=== PATIENT | female | born 1970 | race Caucasian/White ===

== ENCOUNTER 2018-02-07 20:32 | Inpatient (IN) ==
[~2018-02-07 20:32] MED LIST: *HR* EPINEPHrine 30 MG/30 ML MDV IM ONE
[2018-02-07 22:35] LABS: Basophils % 0.5 %; Monocytes % 6.2 %
[2018-02-07 22:36] LABS: ABG Base Excess < -30 mEq/L (-2 to 3); ABG Chloride 108 mEq/L (98-107); ABG Glucose 214 mg/dL (60-95); ABG HCO3 5 mEq/L (21-27); ABG Ionized Calcium 0.96 mmol/L (1.15-1.35); ABG Oxygen Saturation 79 % (95-98); ABG PCO2 43 mmHg (35-45); ABG PH 6.71 pH Units (7.32-7.45); ABG PO2 89 mmHg (85-104); ABG TCO2 7 mEq/L (20-26); Blood Gas Modality ASSIST CONTROL; Blood Gas PEEP 5 cm H2O; Blood Gas Respiration Rate 14; Blood Gas VT 500 cc
[2018-02-07 22:37] LABS: Basophils # 0.1 K/mcL (0.0-0.2); Eosinophils # 0.1 K/mcL (0.0-0.6); Eosinophils % 0.5 %; Hematocrit 35.6 % (35.3-44.9); Immature Granulocytes % 4.9 % (0-4); Immature Platelets 5.7 % (1.1-6.1); Lymphocytes # 2.1 K/mcL (0.6-4.6); Lymphocytes % 11.1 %; Mean Corpuscular HGB Conc 28.1 g/dL (31.6-35.5); Mean Corpuscular Hemoglobin 28.6 pg (28.0-33.3); Mean Corpuscular Volume 101.7 fL (83.0-100.0); Mean Platelet Volume 10.4 fL (9.4-12.4); Monocytes # 1.2 K/mcL (0.0-1.3); Neutrophils # 14.5 K/mcL (1.6-8.9); Platelet Count 361 K/mcL (140-400); Red Cell Distribution Width 13.8 % (11.5-14.5); Segmented Neutrophils % 76.8 %
[2018-02-07 22:38] LABS: VBG Ionized Calcium 0.89 mmol/L (1.15-1.35)
[2018-02-07 22:46] LABS: INR 1.6; Prothrombin Time 17.1 Seconds (9.4-12.1)
[2018-02-07] MEDS ORDERED: Amiodarone Premix 150 MG/100 ML BAG IVPB ONE (22:50)
[2018-02-07] MEDS ORDERED: Sod Bicarb 150mEq/D5W 150 MEQ/1,000 ML IV.SOLN IVC SCH (23:00)
[2018-02-07] MEDS ORDERED: Amiodarone Premix 360 MG/200 ML BAG IVC ONE (23:00)
[2018-02-07 23:11] LABS: Hypochromasia Present (Not Present); Platelet Estimate Normal (Normal)
[2018-02-07 23:12] LABS: ABG Base Excess -28 mEq/L (-2 to 3); ABG HCO3 6 mEq/L (21-27); ABG Oxygen Saturation 86 % (95-98); ABG PCO2 44 mmHg (35-45); ABG PH 6.76 pH Units (7.32-7.45); ABG PO2 100 mmHg (85-104); ABG TCO2 8 mEq/L (20-26); Blood Gas PEEP 10 cm H2O
[2018-02-07] MEDS ORDERED: Phenylephrine 20 MG in D5% in Water 250 ML IVC SCH (23:15)
[2018-02-07 23:18] LABS: Calcium 7.1 mg/dL (8.6-10.3); Magnesium 1.9 mg/dL (1.6-2.6); Phosphorous 15.4 mg/dL (2.7-4.5); Potassium 6.7 mEq/L (3.5-5.1)
[2018-02-07] MEDS ORDERED: Naloxone 0.4 MG/ML INJ IVP PRN (23:27)
[2018-02-07] MEDS: Sodium Bicarbonate 150 MEQ in D5% in Water 1,000 ML IVC SCH (23:28)
[2018-02-07] MEDS: Ipratropium/Albuterol Neb 3 ML IH SCH (23:29)
[2018-02-07 23:34] LABS: Bilirubin,Urine Small (Negative); Blood,Urine Large (Negative); Clarity,Urine Turbid (Clear); Color,Urine Dark Yellow (Yellow); Glucose,Urine (UA) 100 mg/dL (Normal); Ketones,Urine Trace mg/dL (Negative); Leukocyte Esterase,Urine Small (Negative); Nitrite,Urine Negative (Negative); PH,Urine 5.5 pH Units (5.0-8.0); Protein,Urine >=300 mg/dL (Neg-Trace); Specific Gravity,Urine > 1.030 (1.010-1.025); Urobilinogen,Urine Normal (Normal)
[2018-02-07] MEDS ORDERED: Dextrose Gel 15 GM/37.5 ML TUBE PO PRN ×2 (23:35)
[2018-02-07] MEDS ORDERED: *HR* Dextrose 50 % in Water (Syg) 50 ML SYRINGE IVP PRN (23:35)
[2018-02-07] MEDS ORDERED: D5% in Water 1,000 ML IVC PRN (23:35)
[2018-02-07 23:37] LABS: Squamous Epithelial Cell,Urine Many per lpf (None-Few); WBC,Urine 15-30 per hpf (0-3)
[2018-02-07 23:45] LABS: Hyaline Casts,Urine Few per lpf (None-Few); Mucus,Urine Many (Few)
[2018-02-07] MEDS ORDERED: Vasopressin 40 UNIT in D5% in Water 100 ML IV SCH (23:45)
[2018-02-07 23:46] LABS: Bacteria,Urine Many per hpf (None-Few); Yeast,Urine Moderate per hpf (None Seen)
[2018-02-07] MEDS: Norepinephrine 8 MG in D5% in Water 250 ML IVC SCH (23:53)
--- NOTE | 2018-02-08 00:08 | Internal Med History&Physical ---
Date of Encounter: 02/07/18 Time of Encounter: 22:00 Assessment and Plan (1) Septic shock Current visit: Yes Status: Acute Pt has sepsis with low BP need 3 pressors now. Consider septic shock. - Cont abx to treat infection. - Cont iv pressors to maintain BP (2) Multi-organ system dysfunction Current visit: Yes Status: Acute Pt has respiratory and renal failure and septic shock, consider MOSD. Cause of MOSD is severe sepsis. Cont supportive treatment with pressors, mechanical ventilation, and urgent HD. (3) DVT prophylaxis Current visit: Yes Status: Acute EPCDs. (4) Acute renal failure Current visit: No Status: Acute Nephrology consult was called. Plan for urgent HD. Pt has poor urine output. Qualifiers: Acute renal failure type: unspecified Qualified Code(s): N17.9 - Acute kidney failure, unspecified (5) Acute respiratory failure Current visit: No Status: Acute Cont ventilation with PEEP. Pt meets ARDS criteria. Qualifiers: Respiratory failure complication: hypoxia Qualified Code(s): J96.01 - Acute respiratory failure with hypoxia (6) Pneumonia Current visit: No Status: Acute CTA has done in ER, shows pneumonia but no PE. Cover pt with vanco and zosyn now. Cont supportive treatment. Qualifiers: Pneumonia type: due to unspecified organism Laterality: bilateral Lung location: lower lobe of lung Qualified Code(s): J18.1 - Lobar pneumonia, unspecified organism (7) Sepsis Current visit: No Status: Acute Pt meets sepsis criteria with tachycardia, leukocytosis, and tachypnea, infection source is considered pneumonia. But other source of infection is not ruled out, however pt is too sick to have further imaging test at this point. - Blood culture obtained in [facility], prior to start zosyn. Follow up result. - Cover pt with broad-spectrum abx vanco and zosyn. - IVF rescusitation per protocol, lactate is high to > 10, follow up lactate. Qualifiers: Sepsis type: sepsis due to unspecified organism Qualified Code(s): A41.9 - Sepsis, unspecified organism (8) Diabetes mellitus Current visit: Yes Status: Acute Place pt on SSI at this point. Qualifiers: Diabetes mellitus type: type 2 Diabetes mellitus buttermaker continuous churn insulin use: with buttermaker continuous churn use Diabetes mellitus complication status: with unspecified complications Qualified Code(s): E11.8 - Type 2 diabetes mellitus with unspecified complications; Z79.4 - nursing home (current) use of insulin; Z79.4 - intermission coordinator (current) use of insulin; Z79.4 - nursing home (current) use of insulin; Z79.4 - intermission coordinator (current) use of insulin (9) Metabolic acidosis Current visit: Yes Status: Acute Most likely due to severe sepsis. Pt was given Bicarbonatr IVP, followed by bicarbonate drip. Plan for urgent HD, closely monitor pt. (10) Hyperkalemia Current visit: No Status: Acute Due to ARF. Potassium slightly get down after treatment. Plan for urgent HD. Internal Medicine - H&P: HPI Chief complaint: SOB Admitted From: Home Plans for Post Hospital Care: Home History of present illness: Ms. Julien is a 47 year old female with history of diabetes, chronic hip pain, COPD, depression, recent history of spinal infection (possibly osteomyelitis per CAT scan and MRI in chart) presented to [facility] for acute onset of shortness of breath. Patient was intubated in [facility]. History was obtained from patient's . Per patient's , patient is sleepy for several days recently. Today, she has increased shortness of breath and confusion. Patient can only 4 limbs and walks with assistance per patient's , prior to go to ER. Per , pt has no fever, no cough. Has nausea but no vomiting. In ER, pt was found in acute respiratory distress with RR at 30 -40. Pt was intubated immediately. CTA shows no PE but having pneumonia. Pt was found hypotension and central line was placed by ER physician and levophed started. Pt has hyperkalemia with potassium 7.5 and metabolic acidisos with bicarbonate 8. Pt has acute renal failure with Cr 8.81. Pt was given IVF for 3L , one dose of zosyn. Pt was given bicarbonate 50 mEq and insulin 10 units, keyaxalate 30 g through NG tube. Pt was transferred to our ICU. Upon arrival, pt's BP 78/34, pulse 107. Repeat ABG PH 6.71, Bicarbonate 5, potassim 6.4. Pt has no urine. Phenalephrine and later vesopressin drip started to maintain BP. Pt was give sodium bicarbonate 50 mEq ivp x 4 and followed by bicarbonate drip. Pt has developped wide QRS tachycardia which convert to sinus with Calcium 1 g iv plus amiodarone iv followed by amiodarone drip. Stat nephrology and IR consult was informed to have new HD line and start urgent HD. After above treatment, Pt's BP get up to 90s and HR at around 100 at SR. I have discussed with pt's and he understand that pt is on critical condition and prognosis is most likely poor. He shows understand and state keep pt at FULL CODE. Past Med Surg Social Fam HX - Past Medical History Medical history: diabetes, hyperlipidemia, hypertension Psychiatric history: anxiety, depression, panic disorder - Past Surgical History Surgical History: hip replacement, hysterectomy, orthopedic, other - Social History Smoking Status: Former smoker Smokeless Tobacco Status: No Alcohol use: occasionally Drug use: none - Family History Mother History Unknown: Yes Internal Medicine - H&P: Meds Carisoprodol [Soma] 350 mg PO TID 08/13/15 [History] Duloxetine [Cymbalta] 120 mg PO DAILY 08/13/15 [History] Furosemide [Lasix] 40 mg PO Q4D 08/13/15 [History] Insulin ASPART [NovoLOG] 4 - 30 unit SQ TIDWM 08/13/15 [History] Insulin Glargine,Hum.rec.anlog [Lantus Solostar] 90 unit SQ HS 08/13/15 [History ] Methocarbamol [Robaxin] 750 mg PO Q8HR 08/13/15 [History] Albuterol Sulfate [Ventolin Hfa] 2 puff IH Q4H PRN 05/08/16 [History] Beclomethasone Diprop 80mcg [Qvar 80 mcg] 1 puff IH BID 05/08/16 [History] BuPROPion XL (24 HR) [Wellbutrin XL] 300 mg PO DAILY 05/08/16 [History] Diclofenac Sodium [Voltaren] 75 mg PO BID 05/08/16 [History] EPINEPHrine [Adrenalin] 1 mg IJ ONCE PRN 05/08/16 [History] Ergocalciferol (VITAMIN D2) [Vitamin D2 (50,000 UNIT)] 50,000 unit PO HOWELL [History] Ferrous Sulfate 325 mg PO HS 05/08/16 [History] Furosemide [Lasix] 20 mg PO HS 05/08/16 [History] Gabapentin [Neurontin] 800 mg PO TID 05/08/16 [History] GlipiZIDE XL (24 HR) [Glucotrol XL] 10 mg PO BID 05/08/16 [History] Ibuprofen [Motrin] 800 mg PO Q8HR 05/08/16 [History] Levothyroxine [Synthroid] 100 mcg PO 0630 05/08/16 [History] Lisinopril [Zestril] 10 mg PO DAILY 05/08/16 [History] Metformin HCl [Glucophage] 1,000 mg PO BID 05/08/16 [History] Mirtazapine [Remeron] 15 mg PO HS 05/08/16 [History] Montelukast [Singulair] 10 mg PO HS 05/08/16 [History] Pantoprazole Sodium [Protonix] 40 mg PO HS 05/08/16 [History] Ranitidine HCl [Zantac] 150 mg PO BID 05/08/16 [History] Sucralfate [Carafate] 1 gm PO TID 05/08/16 [History] Tiotropium [Spiriva] 18 mcg IH HS 05/08/16 [History] clonazePAM [Klonopin] 0.5 mg PO BID 05/08/16 [History] Ondansetron HCl [Zofran] 4 mg PO Q6H PRN #10 tablet 07/31/17 [Rx] Potassium Chloride [K-Tab ER] 10 meq PO BID #10 tablet.er 07/31/17 [Rx] 3 Allergy/AdvReac Type Severity Reaction Status Date / Time aspirin Allergy Difficulty Verified 08/01/17 02:35 Breathing methotrexate Allergy Hives Verified 08/01/17 02:35 venom-honey bee Allergy Swelling Verified 08/01/17 02:35 [bee venom (honey bee)] of Lip/Tongue/Throat adhesive AdvReac Rash Verified 08/01/17 02:35 ROS unobtainable: due to endotracheal tube All Systems PM: A 10-system review of systems was performed and is negative for pertinent findings except as documented above in the HPI. - Constitutional Vitals: Temp Pulse Resp BP Pulse Ox 96 F L 121 24 89/55 88 02/07/18 22:36 02/07/18 22:36 02/07/18 23:24 02/07/18 22:36 02/07/18 23:24 General appearance: Present: obese Exam: Pt is intubated and on ventilation. - Head Head exam: Present: atraumatic, normocephalic - Eye Eye exam: Present: PERRL, conjuntiva pink, sclera anicteric Pupils: Present: PERRL - Neck Neck exam general surgery: Present: supple, trachea midline. Absent: lymphadenopathy - Respiratory Respiratory exam: Present: CTAB. Absent: accessory muscle use, rales, rhonchi, wheezes - Cardiovascular Cardiovascular exam: Present: RRR, +S1, +S2, tachycardia. Absent: diastolic murmur, gallop, rubs, systolic murmur - GI/Abdominal GI/Abdominal exam: Present: normal bowel sounds, soft, no peritoneal signs. Absent: distended, tenderness - Extremities Exam Extremities exam: Present: warm, radial pulses palpable and symmetrical. Absent : calf tenderness, cyanotic, pedal edema - Neurological Exam Neurological exam: Present: CN II-XII intact, no focal deficits (Limited examination due to intubation, no focal deficit identified so far.). Absent: facial droop - Skin Skin exam: Present: dry, intact Internal Med - H&P Results - Labs CBC & Chem 7: 02/07/18 22:15 02/07/18 22:15 Labs: Short CBC 02/07/18 Range/Units 22:15 WBC 18.9 H (4.3-11.1) K/mcL Hgb 10.0 L (11.5-15.4) g/dL Hct 35.6 (35.3-44.9) % Plt Count 361 (140-400) K/mcL Neutrophils # 14.5 H (1.6-8.9) K/mcL BMP 02/07/18 22:15 Sodium 134 L Potassium 6.7 H* Chloride 97 L Carbon Dioxide 5 L* BUN 53 H Creatinine 8.00 H Glucose 205 H Calcium 7.1 L Urine 02/07/18 Range/Units 23:25 Urine Color Dark Yellow (Yellow) Urine Clarity Turbid A (Clear) Urine pH 5.5 (5.0-8.0) pH Units Ur Specific [place] > 1.030 H (1.010-1.025) Urine Protein >=300 H (Neg-Trace) mg/dL Urine Glucose (UA) 100 H (Normal) mg/dL - ABG Interpretation ABG results: 02/07/18 02/07/18 22:17 23:08 ABG pH 6.71 L* 6.76 L* ABG pCO2 43 44 ABG pO2 89 100 ABG HCO3 5 L 6 L ABG Total CO2 7 L 8 L ABG O2 Saturation 79 L 86 L ABG Base Excess < -30 L -28 L - Impressions ITS Impressions Chest X-Ray 02/07/18 22:41 IMPRESSION: 1. Cardiomegaly. 2. Calcific atherosclerosis aorta. 3. Life support appliances appear appropriately positioned. 4. Unchanged bilateral parahilar medial upper lung atelectasis or infiltrate. D/ / Jeromy Leal / Jeromy Leal Interpreting Provider: Jeromy Leal
[2018-02-08] MEDS: Pantoprazole 40 MG VIAL IVP SCH ×2 (00:17→05:23)
[2018-02-08] MEDS: Insulin LISPRO 300 UNITS/3 ML VIAL SQ SCH ×2 (00:17→05:14)
[2018-02-08] MEDS ORDERED: *HR* Heparin 5,000 UNIT/ML VIAL ONE (00:25)
--- NOTE | 2018-02-08 00:32 | IR Procedure Note ---
Date of procedure: 02/08/18 Consent Obtained: Verbal consent Timeout: Correct patient and procedure verified, Correct site verified, Time out performed, Skin prep completed Local anesthetic: Lidocaine 1% Indications: ARF Procedure Performed: Temp dialysis catheter placement Was there an assistant federal public defender present: No Results/Findings: RIJ 15.5 F 20 cm temp dialysis catheter placement Estimated blood loss (cc): 0 Complications: None; Tolerated procedure well (Monitor on floor) Specimen: None
[2018-02-08 00:34] LABS: VBG Ionized Calcium 0.94 mmol/L (1.15-1.35); VBG PH 6.82 pH Units (7.32-7.42)
[2018-02-08 00:43] LABS: Calcium 7.6 mg/dL (8.6-10.3); Magnesium 1.7 mg/dL (1.6-2.6); Potassium 6.6 mEq/L (3.5-5.1)
[2018-02-08] MEDS ORDERED: 0.9 % Sodium Chloride 250 ML IVC PRN (00:59)
[2018-02-08] MEDS ORDERED: 0.9 % Sodium Chloride 1,000 ML PRIME SCH (01:00)
[2018-02-08] MEDS ORDERED: 0.9 % Sodium Chloride 1,000 ML ONE (01:08)
[2018-02-08] MEDS: WATER IVC SCH ×3 (01:13→08:18)
[2018-02-08] MEDS: D5 IVC SCH ×3 (01:13→08:18)
[2018-02-08] MEDS: PHENYLEPHRINE IVC SCH ×3 (01:13→08:18)
[2018-02-08] MEDS ORDERED: Albumin 25% 25gram/100mL 25 GM/100 ML IV.SOLN IVPB ONE (01:19)
[2018-02-08] MEDS: EPINEPHrine 1 MG in D5% in Water 250 ML IVC SCH ×3 (01:30→04:28)
[2018-02-08 02:05] LABS: VBG Ionized Calcium 0.88 mmol/L (1.15-1.35)
[2018-02-08 02:33] LABS: Calcium 7.1 mg/dL (8.6-10.3); Magnesium 1.6 mg/dL (1.6-2.6); Potassium 6.6 mEq/L (3.5-5.1)
[2018-02-08 03:00] LABS: ABG Base Excess -28 mEq/L (-2 to 3); ABG HCO3 6 mEq/L (21-27); ABG Oxygen Saturation 76 % (95-98); ABG PCO2 44 mmHg (35-45); ABG PH 6.76 pH Units (7.32-7.45); ABG PO2 78 mmHg (85-104); ABG TCO2 8 mEq/L (20-26); Blood Gas Modality ASSIST CONTROL; Blood Gas PEEP 10 cm H2O; Blood Gas Respiration Rate 16; Blood Gas VT 500 cc
[2018-02-08] MEDS ORDERED: *HR* Alteplase (Cathflo) 2 MG VIAL IVP PRN (03:08)
[2018-02-08] MEDS ORDERED: *HR* Heparin 5,000 UNIT/ML VIAL IV PRN (03:08)
[2018-02-08] MEDS ORDERED: PrismaSATE BGK 2/0 5,000 ML CRRT SCH (03:15)
[2018-02-08] MEDS: Ipratropium/Albuterol Neb 3 ML IH SCH ×8 (03:16→15:20)
[2018-02-08] MEDS: Norepinephrine 8 MG in D5% in Water 250 ML IVC SCH ×3 (03:19→10:33)
[2018-02-08] MEDS: PrismaSATE BGK 2/0 5,000 ML CRRT SCH ×4 (03:43→14:17)
[2018-02-08] MEDS: 0.9 % Sodium Chloride 1,000 ML PRIME SCH ×3 (03:46→05:01)
[2018-02-08 04:31] LABS: ABG Base Excess -26 mEq/L (-2 to 3); ABG HCO3 7 mEq/L (21-27); ABG Oxygen Saturation 79 % (95-98); ABG PCO2 42 mmHg (35-45); ABG PH 6.84 pH Units (7.32-7.45); ABG PO2 76 mmHg (85-104); ABG TCO2 9 mEq/L (20-26); Blood Gas Modality ASSIST CONTROL; Blood Gas PEEP 10 cm H2O; Blood Gas Respiration Rate 16; Blood Gas VT 500 cc
[2018-02-08 04:48] LABS: VBG Ionized Calcium 0.85 mmol/L (1.15-1.35)
--- NOTE | 2018-02-08 04:55 | Event Note ---
Date of Encounter: 02/08/18 Time of Encounter: 04:30 Pt's condition is gradually getting worse. Pt's BP get down to 70s although pt is already on levophed, phenolaphrine and vasopressin, all have been increased to maximum dose. I called intensivisit consult Dr Burns and discussed with him regarding pt's condition. Pt has severe acidosis and not improve even we give repeatedly sodium bicarbonate IVP. The persist acidosis is the reason to cause pt not respond to pressors. We have added epinephrine drip and ordered another 100 mEq sodium bicarbonate and cont bicarbonate drip. Pt's SBP remains at 60-70s on totally 4 pressor and PH remains low at 6.8 after sodium bicarbonate ivp and drip. Nephrology plan to start bedside ultrafilter. Pt's present at bedside at around 4am. I have explained to him pt's condition and the poor prognosis although we have given the maximum support to pt. All question from pt's have been answered. Pt's understand the chance of saving pt's life is very slim. He said if pt's heart stop beating , just let her go. We will cont current supportive and abx treatment. Will change CODE STATUS to DNRCCA per pt's wishes. In charge nurse Alayna Farias also joined the conversation during I talked to pt's .
[2018-02-08] MEDS ORDERED: Amiodarone Premix 360 MG/200 ML BAG IVC SCH (05:00)
[2018-02-08] MEDS ORDERED: 0.9 % Sodium Chloride 1,000 ML PRIME PRN (05:01)
[2018-02-08 05:04] LABS: Red Blood Count 3.41 M/mcL (3.82-4.97); Red Cell Distribution Width 13.7 % (11.5-14.5); Segmented Neutrophils % 80.5 %
[2018-02-08 05:06] LABS: Basophils # 0.1 K/mcL (0.0-0.2); Basophils % 0.5 %; Hematocrit 33.9 % (35.3-44.9); Hemoglobin 9.6 g/dL (11.5-15.4); Immature Granulocytes % 3.9 % (0-4); Lymphocytes # 1.6 K/mcL (0.6-4.6); Lymphocytes % 7.5 %; Mean Corpuscular HGB Conc 28.3 g/dL (31.6-35.5); Mean Corpuscular Hemoglobin 28.2 pg (28.0-33.3); Mean Corpuscular Volume 99.4 fL (83.0-100.0); Mean Platelet Volume 11.2 fL (9.4-12.4); Monocytes # 1.6 K/mcL (0.0-1.3); Monocytes % 7.6 %; Nucleated Red Blood Cells 0.4 /100 WBC (0); Platelet Count 348 K/mcL (140-400)
[2018-02-08 05:11] LABS: Albumin 2.8 g/dL (3.5-5.7); Albumin/Globulin Ratio 1.3 (1.1-2.2); Bilirubin,Direct 0.3 mg/dL (0.0-0.2); Bilirubin,Indirect 0.3 mg/dL (0.0-1.2); Bilirubin,Total 0.6 mg/dL (0.3-1.0); Globulin 2.1 g/dL (2.4-3.5); Total Protein 4.9 g/dL (6.4-8.9)
[2018-02-08 05:13] LABS: Neutrophils # 16.6 K/mcL (1.6-8.9)
[2018-02-08 05:18] LABS: Albumin 2.9 g/dL (3.5-5.7); Calcium 6.9 mg/dL (8.6-10.3); Magnesium 2.1 mg/dL (1.6-2.6); Phosphorous 14.1 mg/dL (2.7-4.5); Potassium 6.5 mEq/L (3.5-5.1)
[2018-02-08 05:18] LABS: Prothrombin Time 79.2 Seconds (9.4-12.1)
[2018-02-08 05:19] LABS: INR 7.1
[2018-02-08 05:23] LABS: Hepatitis B Surface Antibody 0.37 mIU/mL; Hepatitis B Surface Antigen Nonreactive (Nonreactive)
[2018-02-08] MEDS: EPINEPHrine 5 MG in D5% in Water 250 ML IVC SCH ×2 (05:45→13:10)
[2018-02-08 06:00] LABS: Acanthocytes 1+ (Not Present); Hypochromasia Present (Not Present); Macrocytosis Present (Not Present); Platelet Estimate Normal (Normal); Polychromasia 1+ (Not Present)
[2018-02-08] MEDS ORDERED: Piperacillin/Tazobactam 3.375 GM in 0.9 % Sodium Chloride Mini Bag 100 ML IVPB SCH ×2 (06:00→14:00)
[2018-02-08 06:01] LABS: Large Platelets Present (Not Present)
[2018-02-08 06:03] LABS: Activated Partial Thrombo Time > 360.0 Seconds (26.0-36.0)
[2018-02-08 06:10] LABS: Heparin anti-factor XA UFH 2.07 IU/mL (0.30-0.70)
[2018-02-08] MEDS ORDERED: Hydrocortisone Sodium Succ 100 MG/2 ML VIAL IVP ONE (07:27)
[2018-02-08] MEDS ORDERED: FentaNYL (PF) 1,000 MCG in 0.9 % Sodium Chloride 80 ML IVC SCH (07:30)
[2018-02-08] MEDS ORDERED: Albuterol Neb 1.25 MG/3 ML VIAL IH ONE (08:06)
[2018-02-08] MEDS: Sodium Bicarbonate 150 MEQ in D5% in Water 1,000 ML IVC SCH ×2 (08:10→14:15)
--- NOTE | 2018-02-08 08:35 | Event Note ---
Date of Encounter: 02/08/18 Time of Encounter: 08:32 This note is entered as a point of clarification. In reviewing the medical documentation over the last 24 hours on this patient's chart I noticed that the emergency room physician at [facility] documented that he spoke to the window caser environmental officer at [facility] regarding this case. I was the window caser at [place] on-call during this time and I did not speak nor accept transfer of this patient in any way with the emergency room physician or team at [facility]. I was called in the early hours of 02/08/18 by the covering hospitalist Dr Carlisle to comment on the addition of a fourth vasopressor in the context of profound metabolic acidemia as outlined in his medical documentation.
[2018-02-08 08:39] LABS: ABG Base Excess -25 mEq/L (-2 to 3); ABG HCO3 8 mEq/L (21-27); ABG Oxygen Saturation 77 % (95-98); ABG PCO2 45 mmHg (35-45); ABG PH 6.87 pH Units (7.32-7.45); ABG PO2 71 mmHg (85-104); ABG TCO2 10 mEq/L (20-26); Blood Gas Modality ASSIST CONTROL; Blood Gas PEEP 10 cm H2O; Blood Gas Respiration Rate 16; Blood Gas VT 500 cc
[2018-02-08 08:47] LABS: VBG Ionized Calcium 0.72 mmol/L (1.15-1.35)
--- NOTE | 2018-02-08 09:01 | Pulmonology Progress Note ---
Date of Encounter: 02/08/18 Time of Encounter: 07:00 Assessment and Plan (1) Multi-organ system dysfunction Current Visit: Yes Status: Acute Encephalopathic, hypotensive, severe DAKOTA, coagulopathic. -- Multifactorial: suspect secondary to acute renal injury contributing to a pharmacologic (suspect Metformin) metabolic acidosis -- Severely hypotensive despite fluid and pressor support -- Prognosis is poor -- Continuing current supportive measures for the time being including fluids, pressors, and comfort measures -- Nephrology is onboard and patient is receiving bedside hemodialysis -- Family present is understanding of severity of patient's status (2) Septic shock Current Visit: Yes Status: Suspected Suspected provoking factor to overall clinical picture as stated above -- supportive measures in place -- Lactate has been above 10 (3) Pneumonia Current Visit: Yes Status: Suspected On Abx and Duonebs q2Hr Qualifiers: Pneumonia type: due to unspecified organism Laterality: bilateral Lung location: lower lobe of lung Qualified Code(s): J18.1 - Lobar pneumonia, unspecified organism (4) Acute respiratory failure Current Visit: Yes Status: Acute Qualifiers: Respiratory failure complication: hypoxia Qualified Code(s): J96.01 - Acute respiratory failure with hypoxia (5) Metabolic acidosis Current Visit: Yes Status: Acute Suspect multifactorial contributing to overall picture, i.e., DAKOTA due to uncertain insult (possibly acute infectious process) + pharmacologic lactic acidosis -- Bicarb given without any apparent improvement of acidotic state -- AG is 34, most recent pH is 6.87 (6) Acute renal failure Current Visit: Yes Status: Acute BUN 54, Creat 7.4; normal baseline Qualifiers: Acute renal failure type: unspecified Qualified Code(s): N17.9 - Acute kidney failure, unspecified (7) Hyperkalemia Current Visit: Yes Status: Acute Given Kayexelate with modest improvement of serum K+ thus far (8) Diabetes mellitus Current Visit: Yes Status: Chronic Began insulin drip due to serum and POC glucoses being in 400+ range Qualifiers: Diabetes mellitus type: type 2 Diabetes mellitus bed bug exterminator insulin use: with bed bug exterminator use Diabetes mellitus complication status: with unspecified complications Qualified Code(s): E11.8 - Type 2 diabetes mellitus with unspecified complications; Z79.4 - prison (current) use of insulin; Z79.4 - terminal supervisor (current) use of insulin; Z79.4 - terminal supervisor (current) use of insulin; Z79.4 - prison (current) use of insulin Subjective Principal diagnosis: Metabolic Acidosis, Shock Interval history: 47F with history of asthma, diabetes, and depression transferred to [facility] ICU from [facility] via helicopter for severe hemodynamic compromise. Pt is hypotensive at 40's/30's on multiple vasopressors (epinephrine, norepinephrine, phenylephrine, and vasopressin). Cause is not completely clear at this point. HPI: present states patient has been somnolent/tired for past 3 days, but otherwise asymptomatic. Yesterday (02/07/18) patient was wakefully tachypneic/dyspneic, expressed that she was nauseous (without vomiting), and generally did not feel well. also comments that patient has not been herself. To his knowledge, she has not had any fevers, chills, headaches, confusion, cough, congestion, chest pain, or any other acute complaints. No sick contacts at home. denies any known new exposures except for Depakote which was prescribed approximately within the week. sleeps in same room with patient and has no similar symptoms at all. denies any illicit substance abuse, suicidal ideation or history, or aberrant use of prescribed medications. Of note, patient does have normal renal function at baseline. Pt on ventilator with progressively lowering BPs despite pressor and fluid support (>4L during ICU course). Also hypoxic on vent with 100% FiO2. Labs have continually demonstrated DAKOTA (again, normal at baseline), AG (34)- metabolic acidosis, Lactate above 10, phosphate of 14.1, inr of 7.1, serum glucose of 486, and K+ of 6.5. CXR was non-specific but possible concerning for pneumonia; no PE seen on CTA. Pt received multiple CXRs with no notable pathologic findings. No other scans have been possible owing to critical nature of patient. Bicarb infused with no improvement of acidosis. Dr. Carlisle, PM hospitalist/admitter, discussed prognosis and life-sustaining/ treatment measures with family present who have agreed that patient be DNR-CCA. Objective PUL Vital signs: Last Vital Signs Temp 97 F L 02/08/18 04:00 Pulse 99 02/08/18 08:00 Resp 24 02/08/18 08:33 BP 45/30 02/08/18 08:33 Pulse Ox 81 02/08/18 08:33 CONSTITUTIONAL: obtunded/sedated on vent HEAD: Normocephalic; grossly atraumatic. EYES: Pupils equal and round; 3mm and reactive Oropharynx: ET tube in place RESP: CTA CARD: Regular rate & rhythm; without murmurs, rubs, or gallop ABD: grossly normal, soft SKIN: no cyanosis, jaundice, pallor, mottling (initial exam), or diaphoresis EXT: Rad pulses 1+ Ventilator Settings Ventilator Settings: Ventilator Settings, Last 8 Hours Ventilator Mode A/C Ventilator Mode A/C Ventilator Mode A/C Ventilator Mode A/C Ventilator Mode A/C Ventilator Mode A/C Ventilator Mode A/C Ventilator Mode A/C Ventilator Tidal Volume 500 Setting Ventilator Tidal Volume 500 Setting Ventilator Tidal Volume 500 Setting Ventilator Tidal Volume 500 Setting Ventilator Tidal Volume 500 Setting Ventilator Tidal Volume 500 Setting Ventilator Tidal Volume 500 Setting Ventilator Tidal Volume 500 Setting Ventilator Respiratory Rate 16 Setting Ventilator Respiratory Rate 16 Setting Ventilator Respiratory Rate 16 Setting Ventilator Respiratory Rate 16 Setting Ventilator Respiratory Rate 16 Setting Ventilator Respiratory Rate 16 Setting Ventilator Respiratory Rate 16 Setting Ventilator Respiratory Rate 16 Setting Actual Respiratory Rate 24 Actual Respiratory Rate 25 Actual Respiratory Rate 25 Actual Respiratory Rate 27 Actual Respiratory Rate 24 Positive End Expiratory 10 Pressure Positive End Expiratory 10 Pressure Positive End Expiratory 10 Pressure Positive End Expiratory 10 Pressure Positive End Expiratory 10 Pressure Positive End Expiratory 10 Pressure Positive End Expiratory 10 Pressure Positive End Expiratory 10 Pressure Peak Inspiratory Airway 26 Pressure Peak Inspiratory Airway 25 Pressure Peak Inspiratory Airway 24 Pressure Peak Inspiratory Airway 25 Pressure Peak Inspiratory Airway 26 Pressure Results - Laboratory Findings CBC and BMP: 02/08/18 04:00 02/08/18 08:25 ABG ABG pH 6.87 pH Units (7.32-7.45) L* 02/08/18 08:35 ABG pCO2 45 mmHg (35-45) 02/08/18 08:35 ABG pO2 71 mmHg (85-104) L 02/08/18 08:35 ABG O2 Saturation 77 % (95-98) L 02/08/18 08:35 PT/INR, D-dimer PT 79.2 Seconds (9.4-12.1) H* D 02/08/18 04:55 Abnormal lab findings: Abnormal lab results WBC 20.6 K/mcL (4.3-11.1) H 02/08/18 04:00 RBC 3.41 M/mcL (3.82-4.97) L 02/08/18 04:00 Hgb 9.6 g/dL (11.5-15.4) L 02/08/18 04:00 Hct 33.9 % (35.3-44.9) L 02/08/18 04:00 MCHC 28.3 g/dL (31.6-35.5) L 02/08/18 04:00 Neutrophils # 16.6 K/mcL (1.6-8.9) H 02/08/18 04:00 Monocytes # 1.6 K/mcL (0.0-1.3) H 02/08/18 04:00 Nucleated RBCs/100 WBC 0.4 /100 WBC (0) H 02/08/18 04:00 Large Platelets Present (Not Present) A 02/08/18 04:00 Polychromasia 1+ (Not Present) A 02/08/18 04:00 Hypochromasia Present (Not Present) A 02/08/18 04:00 Macrocytosis Present (Not Present) A 02/08/18 04:00 Acanthocytes (Spur) 1+ (Not Present) A 02/08/18 04:00 PT 79.2 Seconds (9.4-12.1) H* D 02/08/18 04:55 INR 7.1 H* D 02/08/18 04:55 APTT > 360.0 Seconds (26.0-36.0) H* D 02/08/18 04:55 Heparin Anti-Xa, Unfract 2.07 IU/mL (0.30-0.70) H* 02/08/18 04:55 ABG pH 6.87 pH Units (7.32-7.45) L* 02/08/18 08:35 ABG pO2 71 mmHg (85-104) L 02/08/18 08:35 ABG HCO3 8 mEq/L (21-27) L 02/08/18 08:35 ABG Total CO2 10 mEq/L (20-26) L 02/08/18 08:35 ABG O2 Saturation 77 % (95-98) L 02/08/18 08:35 ABG Base Excess -25 mEq/L (-2 to 3) L 02/08/18 08:35 ABG Chloride 108 mEq/L (98-107) H 02/07/18 22:17 VBG pH 6.82 pH Units (7.32-7.42) L* 02/08/18 00:23 Potassium 6.4 mEq/L (3.5-5.3) H 02/07/18 22:17 Glucose 214 mg/dL (60-95) H 02/07/18 22:17 Lactate 13.4 mmol/L (0.7-2.1) H* 02/07/18 22:17 Sodium 131 mEq/L (136-145) L 02/08/18 04:00 Potassium 6.5 mEq/L (3.5-5.1) H* 02/08/18 04:00 Chloride 90 mEq/L (98-107) L 02/08/18 04:00 Carbon Dioxide 7 mEq/L (23-29) L* 02/08/18 04:00 BUN 54 mg/dL (6-20) H 02/08/18 04:00 Creatinine 7.41 mg/dL (0.60-1.20) H 02/08/18 04:00 Est GFR ( Amer) 7 (> 60) L 02/08/18 04:00 Est GFR (Non-Af Amer) 6 (> 60) L 02/08/18 04:00 Glucose 486 mg/dL (70-105) H 02/08/18 04:00 POC Glucose 228 (58-89) H 02/08/18 00:10 Calculated Osmolality 308 (280-300) H 02/08/18 04:00 Lactic Acid > 10.0 mmol/L (0.5-2.2) H* 02/08/18 04:00 Calcium 6.9 mg/dL (8.6-10.3) L 02/08/18 04:00 Venous Ioniz Calcium 0.72 mmol/L (1.15-1.35) L 02/08/18 08:43 Phosphorus 14.1 mg/dL (2.7-4.5) H 02/08/18 04:00 Direct Bilirubin 0.3 mg/dL (0.0-0.2) H 02/08/18 04:00 AST 137 Units/L (13-39) H 02/08/18 04:00 Serum Total Protein 4.9 g/dL (6.4-8.9) L 02/08/18 04:00 Albumin 2.9 g/dL (3.5-5.7) L 02/08/18 04:00 Globulin 2.1 g/dL (2.4-3.5) L 02/08/18 04:00 Arterial Blood Ionized Calcium 0.96 mmol/L (1.15-1.35) L 02/07/18 22:17 Urine Clarity Turbid (Clear) A 02/07/18 23:25 Ur Specific [place] > 1.030 (1.010-1.025) H 02/07/18 23:25 Urine Protein >=300 mg/dL (Neg-Trace) H 02/07/18 23:25 Urine Glucose (UA) 100 mg/dL (Normal) H 02/07/18 23:25 Urine Ketones Trace mg/dL (Negative) H 02/07/18 23:25 Urine Blood Large (Negative) H 02/07/18 23:25 Urine Bilirubin Small (Negative) H 02/07/18 23:25 Ur Leukocyte Esterase Small (Negative) H 02/07/18 23:25 Urine Microscopic RBC 5-15 per hpf (0-3) H 02/07/18 23:25 Urine Microscopic WBC 15-30 per hpf (0-3) H 02/07/18 23:25 Ur Squamous Epith Cells Many per lpf (None-Few) H 02/07/18 23:25 Urine Bacteria Many per hpf (None-Few) H 02/07/18 23:25 Urine Mucus Many (Few) H 02/07/18 23:25 Urine Yeast Moderate per hpf (None Seen) H 02/07/18 23:25 - Clinical Findings Intake & Output: Intake & Output 02/07/18 02/08/18 02/08/18 23:59 07:59 15:59 Intake Total 100 / 100 3596 / 3596 150 / 150 Output Total 35 / 35 0 / 0 Balance 100 / 100 3561 / 3561 150 / 150 Weight 137 kg Consult Discharge Plan - Plan Referrals: Luz Maria King, [employer] [Primary Care Provider] -
[2018-02-08 09:09] LABS: Calcium 5.8 mg/dL (8.6-10.3); Magnesium 1.8 mg/dL (1.6-2.6); Potassium 5.9 mEq/L (3.5-5.1)
--- NOTE | 2018-02-08 10:26 | Nephrology Consult Note ---
Date of Encounter: 02/08/18 Time of Encounter: 09:20 Assessment and Plan (1) Acute renal failure Current Visit: No Status: Acute Sepsis most likely related to pneumonia, unclear history of spinal infection. DAKOTA in setting of sepsis, CVVH initiated. Hyperkalemia related to DAKOTA, current K + 5.9. Remains anuric. Metabolic acidosis related to sepsis-Will never be able to control K+ and bicarb if underperfused. Avoid nephrotoxins. Will continue to monitor. Qualifiers: Acute renal failure type: unspecified Qualified Code(s): N17.9 - Acute kidney failure, unspecified (2) Hyperkalemia Current Visit: No Status: Acute (3) Metabolic acidosis Current Visit: Yes Status: Acute History of Present Illness - Reason for Consult Acute Kidney Injury - History of Present Illness At time of consult Ms. Julien is Intubated, sedated and on four pressors. There is a step daughter present, but does not know patients medical history, therefore, HPI obtained from prior medical records. Ms. Julien is a 47 year old female who was transferred from [place] for acute respiratory distress, hypotensive and sepsis scenario. Intubated and initially on one pressor. CTA- no PE but having pneumonia. Hyperkalemic 7.5, metabolic acidosis with bicarb of 8, DAKOTA-creat 8.81. 3L IV fluids, one dose of zosyn. Bicarbonate 50 mEq and insulin 10 units, kayaxalate 30 g through NG tube prior to transfer. Other PMH- diabetes, chronic hip pain, COPD, depression, recent history of spinal infection (possibly osteomyelitis per CAT scan and MRI in chart). On arrival to [place] ICU hypotensive 78/34 with additional pressors added. FIO2 100%, Peep 10. Had wide QRS tachycardia that converted with Calcium 1 gram IV, amiodorone IV, followed by Amiodorone drip. Repeat K+ 6.4. Anuric. Nephrology consulted, HD line initiated, hemodynamically unstable for HD and was started on CVVH. This morning remains hemodynamically unstable maxed on 4 pressors. Rapid agonal breaths over vent, use of accessory muscles, lightly sedated to assist with respiratory status. Renal fct prior normal prior to Dec 2017. Home MAR on diuretics and NSAID's- high dose (diclofenec and Ibuprofen) Past Med Surg Social Fam HX - Past Medical History Medical history: diabetes, hyperlipidemia, hypertension Psychiatric history: anxiety, depression, panic disorder - Past Surgical History Surgical History: hip replacement, hysterectomy, orthopedic, other - Social History Smoking Status: Former smoker Smokeless Tobacco Status: No Alcohol use: occasionally Drug use: none - Family History Mother History Unknown: Yes Medications and Allergies Insulin ASPART [NovoLOG] 4 - 30 unit SQ TIDWM 08/13/15 [History] Albuterol Sulfate [Ventolin Hfa] 2 puff IH Q4H PRN 05/08/16 [History] Beclomethasone Diprop 80mcg [Qvar 80 mcg] 1 puff IH BID 05/08/16 [History] BuPROPion XL (24 HR) [Wellbutrin XL] 450 mg PO DAILY 05/08/16 [History] Ergocalciferol (VITAMIN D2) [Vitamin D2 (50,000 UNIT)] 50,000 unit PO HOWELL [History] Ferrous Sulfate 325 mg PO HS 05/08/16 [History] Gabapentin [Neurontin] 800 mg PO TID 05/08/16 [History] GlipiZIDE XL (24 HR) [Glucotrol XL] 10 mg PO BID 05/08/16 [History] Levothyroxine [Synthroid] 100 mcg PO 0630 05/08/16 [History] Lisinopril [Zestril] 10 mg PO DAILY 05/08/16 [History] Metformin HCl [Glucophage] 1,000 mg PO BID 05/08/16 [History] Mirtazapine [Remeron] 15 mg PO HS 05/08/16 [History] Montelukast [Singulair] 10 mg PO HS 05/08/16 [History] Pantoprazole Sodium [Protonix] 40 mg PO HS 05/08/16 [History] Ranitidine HCl [Zantac] 150 mg PO BID 05/08/16 [History] Sucralfate [Carafate] 1 gm PO TID 05/08/16 [History] clonazePAM [Klonopin] 1.5 mg PO BID 05/08/16 [History] Atomoxetine HCl [Strattera] 60 mg PO DAILY 02/08/18 [History] Divalproex Sodium [Depakote] 250 mg PO BID 02/08/18 [History] Insulin Glargine,Hum.rec.anlog [Basaglar Rolandoikpen U-100] 90 unit SQ HS 02/08/18 [ History] Lurasidone HCl [Latuda] 80 mg PO DAILY 02/08/18 [History] 3 Allergy/AdvReac Type Severity Reaction Status Date / Time aspirin Allergy Difficulty Verified 08/01/17 02:35 Breathing methotrexate Allergy Hives Verified 08/01/17 02:35 venom-honey bee Allergy Swelling Verified 08/01/17 02:35 [bee venom (honey bee)] of Lip/Tongue/Throat adhesive AdvReac Rash Verified 08/01/17 02:35 Review of Systems ROS unobtainable: due to endotracheal tube Exam - Vital Signs Vital signs: Initial Vital Signs Resp Pulse Ox 24 77 02/07/18 21:55 02/07/18 21:55 Vital Signs - Last 8 Hours Temp Pulse Resp BP Pulse Ox 02/08/18 09:12 25 44/30 79 02/08/18 09:00 90 24 41/30 79 02/08/18 08:33 24 45/30 81 02/08/18 08:00 99 25 42/30 80 02/08/18 07:39 24 45/31 81 02/08/18 07:35 92 02/08/18 06:55 93 27 49/31 81 02/08/18 05:52 95 26 48/31 79 02/08/18 05:09 27 84 02/08/18 05:00 96 28 53/34 80 02/08/18 04:00 97 F L 101 28 54/36 80 02/08/18 03:52 101 02/08/18 03:16 25 74/38 87 02/08/18 03:00 102 26 72/38 84 02/08/18 01:57 101 22 90/54 80 Intake and Output 02/07/18 02/08/18 02/08/18 23:59 07:59 15:59 Intake Total 100 / 100 3596 / 3596 625.2 / 625.2 Output Total 35 / 35 24 / 24 Balance 100 / 100 3561 / 3561 601.2 / 601.2 Intake: IV Fluids 100 / 100 3596 / 3596 625.2 / 625.2 PrismaSATE BGK 2/0 5,000 ML @ 0 / 0 2000 mls/hr CRRT [facility] Rx#: [id number] Vasostrict 40 UNIT In Dextrose 4.3 / 4.3 5% 100 ML @ 0.03 UNIT/MIN 4.59 mls/hr IV .[id number] [facility] Rx#: [id number] Amiodarone Drip Premix 360mg/ 200 / 200 16.2 / 16.2 200mL 360 mg In 200 ml @ 0.5 MG /MIN 16.667 mls/hr IVC CONT [facility] Rx#:[id number] EPINEPHrine 5 MG In Dextrose 5% 502 / 502 35.4 / 35.4 250 ML @ 2 MCG/MIN 6.12 mls/hr IVC CONT [facility] Rx#:[id number] FentaNYL (PF) 1,000 MCG In 0.9 2.5 / 2.5 % Sodium Chloride 80 ML @ 50 MCG/HR 5 mls/hr IVC CONT [facility] Rx #:[id number] Versed 50 MG In 0.9 % Sodium 4.8 / 4.8 Chloride 90 ML @ 1 MG/HR 2 mls/ hr IVC CONT [facility] Rx#:[id number] Levophed 8 MG In Dextrose 5% 516 / 516 73 / 73 250 ML @ 2 MCG/MIN 3.87 mls/hr IVC CONT [facility] Rx#:[id number] Phenylephrine 40 MG In Dextrose 1008 / 1008 145 / 145 5% 500 ML @ 40 MCG/MIN 30.24 mls/hr IVC CONT [facility] Rx#: [id number] Sodium Bicarbonate 150 MEQ In 1000 / 1000 344 / 344 Dextrose 5% 1,000 ML @ 125 mls/ hr IVC .[id number] [facility] Rx#: [id number] Flexbumin 25 gm In 100 ml @ 60 100 / 100 mls/hr [facility] Rx#: [id number] Amiodarone Premix 150mg/100mL 100 / 100 150 mg In 100 ml @ 300 mls/hr [facility] Rx#:[id number] Calcium Gluconate 1,000 MG In 0 220 / 220 .9 % Sodium Chloride 100 ML @ 220 mls/hr [facility] Rx#: [id number] Magnesium Sulfate Premix 2gm/ 50 / 50 50mL 2 gm In 50 ml @ 50 mls/hr [facility] Rx#:[id number] Oral 0 / 0 Tube Feeding 0 / 0 Output: Lydia 0 / 0 24 / 24 Catheter 35 / 35 0 / 0 Other: Weight 137 kg Blood Glucose* 465 - General Appearance General appearance: well-developed, well-nourished, appears started age, obese EENT: mucous membranes moist Neck: no JVD Respiratory: rhonchi Cardiology: edema, regular rate, regular rhythm Additional Comments: generalized Gastrointestinal: hypoactive bowel sounds Integumentary: warm and dry Results - Lab Results 02/08/18 04:00 02/08/18 08:25 Most recent lab results ABG pH 6.87 pH Units (7.32-7.45) L* 02/08/18 08:35 ABG pCO2 45 mmHg (35-45) 02/08/18 08:35 ABG pO2 71 mmHg (85-104) L 02/08/18 08:35 ABG HCO3 8 mEq/L (21-27) L 02/08/18 08:35 ABG O2 Saturation 77 % (95-98) L 02/08/18 08:35 Calcium 5.8 mg/dL (8.6-10.3) L* 02/08/18 08:25 Phosphorus 14.1 mg/dL (2.7-4.5) H 02/08/18 04:00 Magnesium 1.8 mg/dL (1.6-2.6) 02/08/18 08:25 Consult Discharge Plan - Plan Referrals: Luz Maria King, [employer]INE OPERATOR [Primary Care Provider] -
[2018-02-08] MEDS ORDERED: Insulin Human Regular 100 UNIT in 0.9 % Sodium Chloride 100 ML IVC SCH (11:00)
[2018-02-08 11:26] LABS: VBG Ionized Calcium 0.66 mmol/L (1.15-1.35)
[2018-02-08] MEDS ORDERED: Phenylephrine 50 MG in D5% in Water 250 ML IVC SCH (11:30)
[2018-02-08 11:54] LABS: BUN/Creatinine Ratio 8 (6-26); Blood Urea Nitrogen 30 mg/dL (6-20); Calcium < 4.0 mg/dL (8.6-10.3); Carbon Dioxide 6 mEq/L (23-29); Chloride 110 mEq/L (98-107); Glucose 348 mg/dL (70-105); Magnesium 1.1 mg/dL (1.6-2.6); Osmolality,Calculated 304 (280-300); Potassium 3.6 mEq/L (3.5-5.1); Sodium 137 mEq/L (136-145); eGFR For African Americans 16 (> 60); eGFR For Non-African Americans 13 (> 60)
[2018-02-08] MEDS ORDERED: Insulin LISPRO 300 UNITS/3 ML VIAL SQ SCH (12:00)
[2018-02-08] MEDS ORDERED: Lacri-Lube 3.5 GM TUBE BOTH EYES SCH (12:00)
[2018-02-08 12:24] LABS: ABG Base Excess -26 mEq/L (-2 to 3); ABG HCO3 8 mEq/L (21-27); ABG Oxygen Saturation 66 % (95-98); ABG PCO2 47 mmHg (35-45); ABG PH 6.83 pH Units (7.32-7.45); ABG PO2 61 mmHg (85-104); ABG TCO2 9 mEq/L (20-26); Blood Gas Modality ASSIST CONTROL; Blood Gas PEEP 10 cm H2O; Blood Gas Respiration Rate 16; Blood Gas VT 500 cc
[2018-02-08] MEDS ORDERED: Norepinephrine 16 MG in D5% in Water 500 ML IVC SCH (13:30)
[2018-02-08 14:47] LABS: VBG Ionized Calcium 0.62 mmol/L (1.15-1.35)
--- NOTE | 2018-02-08 15:23 | Electrocardiograph Report ---
[address] [place] [address] Test Date: 2018-02-07 Pat Name: Yumiko Julien Department: 109 Room: [facility] Gender: F Science Specialist: : [id number] Requested By: Josefina Yañez Order Number: [id number] Reading MD: Larry Lewis DO Measurements Intervals [place] Rate: 118 P: CT: 0 QRS: -84 QRSD: 174 T: -12 QT: 311 QTc: 381 Interpretive Statements ATRIAL FLUTTER/TACHYCARDIA WITH RAPID VENTRICULAR RESPONSE RIGHT BUNDLE BRANCH BLOCK INFERIOR MYOCARDIAL INFARCTION, OF INDETERMINATE AGE Electronically Signed On 02-08-2018 15:22:04 EDT by Larry Lewis DO
[2018-02-08 15:24] VITALS: BP 34/26
[2018-02-08 15:29] LABS: Calcium 5.1 mg/dL (8.6-10.3); Magnesium 1.8 mg/dL (1.6-2.6); Potassium 5.2 mEq/L (3.5-5.1)
[2018-02-08] MEDS ORDERED: *HR* LORazepam 2 MG/ML VIAL IVP PRN (15:46)
[2018-02-08] MEDS ORDERED: *HR* FentaNYL (PF) 100 MCG/2 ML VIAL IVP ONE (15:47)
--- NOTE | 2018-02-08 16:02 | Pulmonology Consult Note ---
<Mic Lemus - Last Filed: 02/08/18 16:02> Date of Encounter: 02/08/18 Time of Encounter: 08:00 Past Med Surg Social Fam HX - Past Medical History Medical history: diabetes, hyperlipidemia, hypertension Psychiatric history: anxiety, depression, panic disorder - Past Surgical History Surgical History: hip replacement, hysterectomy, orthopedic, other - Social History Smoking Status: Former smoker Smokeless Tobacco Status: No Alcohol use: occasionally Drug use: none - Family History Mother History Unknown: Yes Medications and Allergies Insulin ASPART [NovoLOG] 4 - 30 unit SQ TIDWM 08/13/15 [History] Albuterol Sulfate [Ventolin Hfa] 2 puff IH Q4H PRN 05/08/16 [History] Beclomethasone Diprop 80mcg [Qvar 80 mcg] 1 puff IH BID 05/08/16 [History] BuPROPion XL (24 HR) [Wellbutrin XL] 450 mg PO DAILY 05/08/16 [History] Ergocalciferol (VITAMIN D2) [Vitamin D2 (50,000 UNIT)] 50,000 unit PO HOWELL [History] Ferrous Sulfate 325 mg PO HS 05/08/16 [History] Gabapentin [Neurontin] 800 mg PO TID 05/08/16 [History] GlipiZIDE XL (24 HR) [Glucotrol XL] 10 mg PO BID 05/08/16 [History] Levothyroxine [Synthroid] 100 mcg PO 0630 05/08/16 [History] Lisinopril [Zestril] 10 mg PO DAILY 05/08/16 [History] Metformin HCl [Glucophage] 1,000 mg PO BID 05/08/16 [History] Mirtazapine [Remeron] 15 mg PO HS 05/08/16 [History] Montelukast [Singulair] 10 mg PO HS 05/08/16 [History] Pantoprazole Sodium [Protonix] 40 mg PO HS 05/08/16 [History] Ranitidine HCl [Zantac] 150 mg PO BID 05/08/16 [History] Sucralfate [Carafate] 1 gm PO TID 05/08/16 [History] clonazePAM [Klonopin] 1.5 mg PO BID 05/08/16 [History] Atomoxetine HCl [Strattera] 60 mg PO DAILY 02/08/18 [History] Divalproex Sodium [Depakote] 250 mg PO BID 02/08/18 [History] Insulin Glargine,Hum.rec.anlog [Basaglar Kwikpen U-100] 90 unit SQ HS 02/08/18 [ History] Lurasidone HCl [Latuda] 80 mg PO DAILY 02/08/18 [History] 3 Allergy/AdvReac Type Severity Reaction Status Date / Time aspirin Allergy Difficulty Verified 08/01/17 02:35 Breathing methotrexate Allergy Hives Verified 08/01/17 02:35 venom-honey bee Allergy Swelling Verified 08/01/17 02:35 [bee venom (honey bee)] of Lip/Tongue/Throat adhesive AdvReac Rash Verified 08/01/17 02:35 All Systems: The remainder of the systems were reviewed and are negative Physical Examination Vital Signs: Vital Signs, Last 4 Hours Temp Pulse Resp BP Pulse Ox 02/08/18 15:29 70 02/08/18 15:20 23 34/26 70 02/08/18 15:00 97.5 F L 73 24 35/27 65 02/08/18 14:30 24 37/29 74 02/08/18 14:00 77 24 37/29 74 02/08/18 13:10 23 42/29 73 02/08/18 13:00 81 24 42/29 76 Ventilator Settings Ventilator Settings: Ventilator Settings, Last 8 Hours Ventilator Mode A/C Ventilator Mode A/C Ventilator Mode A/C Ventilator Mode A/C Ventilator Mode A/C Ventilator Mode A/C Ventilator Mode A/C Ventilator Mode A/C Ventilator Mode A/C Ventilator Tidal Volume 500 Setting Ventilator Tidal Volume 500 Setting Ventilator Tidal Volume 500 Setting Ventilator Tidal Volume 500 Setting Ventilator Tidal Volume 500 Setting Ventilator Tidal Volume 500 Setting Ventilator Tidal Volume 500 Setting Ventilator Tidal Volume 500 Setting Ventilator Tidal Volume 500 Setting Ventilator Respiratory Rate 16 Setting Ventilator Respiratory Rate 16 Setting Ventilator Respiratory Rate 16 Setting Ventilator Respiratory Rate 16 Setting Ventilator Respiratory Rate 16 Setting Ventilator Respiratory Rate 16 Setting Ventilator Respiratory Rate 16 Setting Ventilator Respiratory Rate 16 Setting Ventilator Respiratory Rate 16 Setting Actual Respiratory Rate 24 Actual Respiratory Rate 24 Actual Respiratory Rate 23 Actual Respiratory Rate 24 Actual Respiratory Rate 24 Actual Respiratory Rate 24 Actual Respiratory Rate 24 Positive End Expiratory 10 Pressure Positive End Expiratory 10 Pressure Positive End Expiratory 10 Pressure Positive End Expiratory 10 Pressure Positive End Expiratory 10 Pressure Positive End Expiratory 10 Pressure Positive End Expiratory 10 Pressure Positive End Expiratory 10 Pressure Positive End Expiratory 10 Pressure Peak Inspiratory Airway 31 Pressure Peak Inspiratory Airway 32 Pressure Peak Inspiratory Airway 29 Pressure Peak Inspiratory Airway 29 Pressure Peak Inspiratory Airway 29 Pressure Peak Inspiratory Airway 27 Pressure Peak Inspiratory Airway 26 Pressure Results - Laboratory Findings CBC and BMP: 02/08/18 04:00 02/08/18 13:32 ABG ABG pH 6.83 pH Units (7.32-7.45) L* 02/08/18 12:19 ABG pCO2 47 mmHg (35-45) H 02/08/18 12:19 ABG pO2 61 mmHg (85-104) L 02/08/18 12:19 ABG O2 Saturation 66 % (95-98) L 02/08/18 12:19 PT/INR, D-dimer PT 79.2 Seconds (9.4-12.1) H* D 02/08/18 04:55 Abnormal lab findings: Abnormal lab results WBC 20.6 K/mcL (4.3-11.1) H 02/08/18 04:00 RBC 3.41 M/mcL (3.82-4.97) L 02/08/18 04:00 Hgb 9.6 g/dL (11.5-15.4) L 02/08/18 04:00 Hct 33.9 % (35.3-44.9) L 02/08/18 04:00 MCHC 28.3 g/dL (31.6-35.5) L 02/08/18 04:00 Neutrophils # 16.6 K/mcL (1.6-8.9) H 02/08/18 04:00 Monocytes # 1.6 K/mcL (0.0-1.3) H 02/08/18 04:00 Nucleated RBCs/100 WBC 0.4 /100 WBC (0) H 02/08/18 04:00 Large Platelets Present (Not Present) A 02/08/18 04:00 Polychromasia 1+ (Not Present) A 02/08/18 04:00 Hypochromasia Present (Not Present) A 02/08/18 04:00 Macrocytosis Present (Not Present) A 02/08/18 04:00 Acanthocytes (Spur) 1+ (Not Present) A 02/08/18 04:00 PT 79.2 Seconds (9.4-12.1) H* D 02/08/18 04:55 INR 7.1 H* D 02/08/18 04:55 APTT > 360.0 Seconds (26.0-36.0) H* D 02/08/18 04:55 Heparin Anti-Xa, Unfract 2.07 IU/mL (0.30-0.70) H* 02/08/18 04:55 ABG pH 6.83 pH Units (7.32-7.45) L* 02/08/18 12:19 ABG pCO2 47 mmHg (35-45) H 02/08/18 12:19 ABG pO2 61 mmHg (85-104) L 02/08/18 12:19 ABG HCO3 8 mEq/L (21-27) L 02/08/18 12:19 ABG Total CO2 9 mEq/L (20-26) L 02/08/18 12:19 ABG O2 Saturation 66 % (95-98) L 02/08/18 12:19 ABG Base Excess -26 mEq/L (-2 to 3) L 02/08/18 12:19 ABG Chloride 108 mEq/L (98-107) H 02/07/18 22:17 VBG pH 6.82 pH Units (7.32-7.42) L* 02/08/18 00:23 Potassium 6.4 mEq/L (3.5-5.3) H 02/07/18 22:17 Glucose 214 mg/dL (60-95) H 02/07/18 22:17 Lactate 13.4 mmol/L (0.7-2.1) H* 02/07/18 22:17 Sodium 130 mEq/L (136-145) L 02/08/18 13:32 Potassium 5.2 mEq/L (3.5-5.1) H D 02/08/18 13:32 Chloride 89 mEq/L (98-107) L 02/08/18 13:32 Carbon Dioxide 7 mEq/L (23-29) L* 02/08/18 13:32 BUN 41 mg/dL (6-20) H 02/08/18 13:32 Creatinine 5.51 mg/dL (0.60-1.20) H 02/08/18 13:32 Est GFR ( Amer) 10 (> 60) L 02/08/18 13:32 Est GFR (Non-Af Amer) 8 (> 60) L 02/08/18 13:32 Glucose 425 mg/dL (70-105) H 02/08/18 13:32 POC Glucose 228 (58-89) H 02/08/18 00:10 Lactic Acid > 10.0 mmol/L (0.5-2.2) H* 02/08/18 04:00 Calcium 5.1 mg/dL (8.6-10.3) L* 02/08/18 13:32 Venous Ioniz Calcium 0.62 mmol/L (1.15-1.35) L 02/08/18 14:44 Phosphorus 14.1 mg/dL (2.7-4.5) H 02/08/18 04:00 Direct Bilirubin 0.3 mg/dL (0.0-0.2) H 02/08/18 04:00 AST 137 Units/L (13-39) H 02/08/18 04:00 Creatine Kinase 6669 Units/L (30-223) H 02/08/18 08:25 Serum Total Protein 4.9 g/dL (6.4-8.9) L 02/08/18 04:00 Albumin 2.9 g/dL (3.5-5.7) L 02/08/18 04:00 Globulin 2.1 g/dL (2.4-3.5) L 02/08/18 04:00 Arterial Blood Ionized Calcium 0.96 mmol/L (1.15-1.35) L 02/07/18 22:17 Urine Clarity Turbid (Clear) A 02/07/18 23:25 Ur Specific [place] > 1.030 (1.010-1.025) H 02/07/18 23:25 Urine Protein >=300 mg/dL (Neg-Trace) H 02/07/18 23:25 Urine Glucose (UA) 100 mg/dL (Normal) H 02/07/18 23:25 Urine Ketones Trace mg/dL (Negative) H 02/07/18 23:25 Urine Blood Large (Negative) H 02/07/18 23:25 Urine Bilirubin Small (Negative) H 02/07/18 23:25 Ur Leukocyte Esterase Small (Negative) H 03/22/18 23:25 Urine Microscopic RBC 5-15 per hpf (0-3) H 02/07/18 23:25 Urine Microscopic WBC 15-30 per hpf (0-3) H 02/07/18 23:25 Ur Squamous Epith Cells Many per lpf (None-Few) H 02/07/18 23:25 Urine Bacteria Many per hpf (None-Few) H 02/07/18 23:25 Urine Mucus Many (Few) H 02/07/18 23:25 Urine Yeast Moderate per hpf (None Seen) H 02/07/18 23:25 - Clinical Findings Intake & Output: Intake & Output 02/08/18 02/08/18 02/08/18 07:59 15:59 23:59 Intake Total 3596 / 3596 2605.8 / 2605.8 Output Total 35 / 35 209 / 209 Balance 3561 / 3561 2396.8 / 2396.8 Consult Discharge Plan - Plan Referrals: Luz Maria King, SENIOR [employer]ROLL ADMINISTRATOR [Primary Care Provider] - <Venancio Burns W - Last Filed: 02/08/18 16:06> Date of Encounter: 02/08/18 All Systems: The remainder of the systems were reviewed and are negative Physical Examination Vital Signs: Vital Signs, Last 4 Hours Temp Pulse Resp BP Pulse Ox 02/08/18 15:29 70 02/08/18 15:20 23 34/26 70 02/08/18 15:00 97.5 F L 73 24 35/27 65 02/08/18 14:30 24 37/29 74 02/08/18 14:00 77 24 37/29 74 02/08/18 13:10 23 42/29 73 02/08/18 13:00 81 24 42/29 76 Ventilator Settings Ventilator Settings: Ventilator Settings, Last 8 Hours Ventilator Mode A/C Ventilator Mode A/C Ventilator Mode A/C Ventilator Mode A/C Ventilator Mode A/C Ventilator Mode A/C Ventilator Mode A/C Ventilator Mode A/C Ventilator Mode A/C Ventilator Tidal Volume 500 Setting Ventilator Tidal Volume 500 Setting Ventilator Tidal Volume 500 Setting Ventilator Tidal Volume 500 Setting Ventilator Tidal Volume 500 Setting Ventilator Tidal Volume 500 Setting Ventilator Tidal Volume 500 Setting Ventilator Tidal Volume 500 Setting Ventilator Tidal Volume 500 Setting Ventilator Respiratory Rate 16 Setting Ventilator Respiratory Rate 16 Setting Ventilator Respiratory Rate 16 Setting Ventilator Respiratory Rate 16 Setting Ventilator Respiratory Rate 16 Setting Ventilator Respiratory Rate 16 Setting Ventilator Respiratory Rate 16 Setting Ventilator Respiratory Rate 16 Setting Ventilator Respiratory Rate 16 Setting Actual Respiratory Rate 24 Actual Respiratory Rate 24 Actual Respiratory Rate 23 Actual Respiratory Rate 24 Actual Respiratory Rate 24 Actual Respiratory Rate 24 Actual Respiratory Rate 24 Positive End Expiratory 10 Pressure Positive End Expiratory 10 Pressure Positive End Expiratory 10 Pressure Positive End Expiratory 10 Pressure Positive End Expiratory 10 Pressure Positive End Expiratory 10 Pressure Positive End Expiratory 10 Pressure Positive End Expiratory 10 Pressure Positive End Expiratory 10 Pressure Peak Inspiratory Airway 31 Pressure Peak Inspiratory Airway 32 Pressure Peak Inspiratory Airway 29 Pressure Peak Inspiratory Airway 29 Pressure Peak Inspiratory Airway 29 Pressure Peak Inspiratory Airway 27 Pressure Peak Inspiratory Airway 26 Pressure Results - Laboratory Findings CBC and BMP: 02/08/18 04:00 02/08/18 13:32 ABG ABG pH 6.83 pH Units (7.32-7.45) L* 02/08/18 12:19 ABG pCO2 47 mmHg (35-45) H 02/08/18 12:19 ABG pO2 61 mmHg (85-104) L 02/08/18 12:19 ABG O2 Saturation 66 % (95-98) L 02/08/18 12:19 PT/INR, D-dimer PT 79.2 Seconds (9.4-12.1) H* D 02/08/18 04:55 Abnormal lab findings: Abnormal lab results WBC 20.6 K/mcL (4.3-11.1) H 02/08/18 04:00 RBC 3.41 M/mcL (3.82-4.97) L 02/08/18 04:00 Hgb 9.6 g/dL (11.5-15.4) L 02/08/18 04:00 Hct 33.9 % (35.3-44.9) L 02/08/18 04:00 MCHC 28.3 g/dL (31.6-35.5) L 02/08/18 04:00 Neutrophils # 16.6 K/mcL (1.6-8.9) H 02/08/18 04:00 Monocytes # 1.6 K/mcL (0.0-1.3) H 02/08/18 04:00 Nucleated RBCs/100 WBC 0.4 /100 WBC (0) H 02/08/18 04:00 Large Platelets Present (Not Present) A 02/08/18 04:00 Polychromasia 1+ (Not Present) A 02/08/18 04:00 Hypochromasia Present (Not Present) A 02/08/18 04:00 Macrocytosis Present (Not Present) A 02/08/18 04:00 Acanthocytes (Spur) 1+ (Not Present) A 02/08/18 04:00 PT 79.2 Seconds (9.4-12.1) H* D 02/08/18 04:55 INR 7.1 H* D 02/08/18 04:55 APTT > 360.0 Seconds (26.0-36.0) H* D 02/08/18 04:55 Heparin Anti-Xa, Unfract 2.07 IU/mL (0.30-0.70) H* 02/08/18 04:55 ABG pH 6.83 pH Units (7.32-7.45) L* 02/08/18 12:19 ABG pCO2 47 mmHg (35-45) H 02/08/18 12:19 ABG pO2 61 mmHg (85-104) L 02/08/18 12:19 ABG HCO3 8 mEq/L (21-27) L 02/08/18 12:19 ABG Total CO2 9 mEq/L (20-26) L 02/08/18 12:19 ABG O2 Saturation 66 % (95-98) L 02/08/18 12:19 ABG Base Excess -26 mEq/L (-2 to 3) L 02/08/18 12:19 ABG Chloride 108 mEq/L (98-107) H 02/07/18 22:17 VBG pH 6.82 pH Units (7.32-7.42) L* 02/08/18 00:23 Potassium 6.4 mEq/L (3.5-5.3) H 02/07/18 22:17 Glucose 214 mg/dL (60-95) H 02/07/18 22:17 Lactate 13.4 mmol/L (0.7-2.1) H* 02/07/18 22:17 Sodium 130 mEq/L (136-145) L 02/08/18 13:32 Potassium 5.2 mEq/L (3.5-5.1) H D 02/08/18 13:32 Chloride 89 mEq/L (98-107) L 02/08/18 13:32 Carbon Dioxide 7 mEq/L (23-29) L* 02/08/18 13:32 BUN 41 mg/dL (6-20) H 02/08/18 13:32 Creatinine 5.51 mg/dL (0.60-1.20) H 02/08/18 13:32 Est GFR ( Amer) 10 (> 60) L 02/08/18 13:32 Est GFR (Non-Af Amer) 8 (> 60) L 02/08/18 13:32 Glucose 425 mg/dL (70-105) H 02/08/18 13:32 POC Glucose 228 (58-89) H 02/08/18 00:10 Lactic Acid > 10.0 mmol/L (0.5-2.2) H* 02/08/18 04:00 Calcium 5.1 mg/dL (8.6-10.3) L* 02/08/18 13:32 Venous Ioniz Calcium 0.62 mmol/L (1.15-1.35) L 02/08/18 14:44 Phosphorus 14.1 mg/dL (2.7-4.5) H 02/08/18 04:00 Direct Bilirubin 0.3 mg/dL (0.0-0.2) H 02/08/18 04:00 AST 137 Units/L (13-39) H 02/08/18 04:00 Creatine Kinase 6669 Units/L (30-223) H 02/08/18 08:25 Serum Total Protein 4.9 g/dL (6.4-8.9) L 02/08/18 04:00 Albumin 2.9 g/dL (3.5-5.7) L 02/08/18 04:00 Globulin 2.1 g/dL (2.4-3.5) L 02/08/18 04:00 Arterial Blood Ionized Calcium 0.96 mmol/L (1.15-1.35) L 02/07/18 22:17 Urine Clarity Turbid (Clear) A 02/07/18 23:25 Ur Specific [place] > 1.030 (1.010-1.025) H 02/07/18 23:25 Urine Protein >=300 mg/dL (Neg-Trace) H 02/07/18 23:25 Urine Glucose (UA) 100 mg/dL (Normal) H 02/07/18 23:25 Urine Ketones Trace mg/dL (Negative) H 02/07/18 23:25 Urine Blood Large (Negative) H 02/07/18 23:25 Urine Bilirubin Small (Negative) H 02/07/18 23:25 Ur Leukocyte Esterase Small (Negative) H 02/07/18 23:25 Urine Microscopic RBC 5-15 per hpf (0-3) H 02/07/18 23:25 Urine Microscopic WBC 15-30 per hpf (0-3) H 02/07/18 23:25 Ur Squamous Epith Cells Many per lpf (None-Few) H 02/07/18 23:25 Urine Bacteria Many per hpf (None-Few) H 02/07/18 23:25 Urine Mucus Many (Few) H 02/07/18 23:25 Urine Yeast Moderate per hpf (None Seen) H 02/07/18 23:25 - Clinical Findings Intake & Output: Intake & Output 02/08/18 02/08/18 02/08/18 07:59 15:59 23:59 Intake Total 3596 / 3596 2605.8 / 2605.8 Output Total 35 / 35 209 / 209 Balance 3561 / 3561 2396.8 / 2396.8 - Attending Attestation I examined this patient and my medical decision-making was reviewed with the Resident Physician. I agree with the documented findings, disposition and treatment plan as described except to the extent set forth below. We independently had [id number] contact with the patient I spent 65min of Critical Care time with this patient. It involved decision making of high complexity to assess, manipulate, and support vital organ system failure and/or to prevent further life threatening deterioration of the patient' s condition. The time involved in the performance of separately reportable procedures was not counted toward critical care time. Patient seen and examined at bedside Labs, radiology, chart personally reviewed. Management was reviewed during multidisciplinary critical care rounds. SEALER DRY CELL: Comatose secondary to hypotension and suspected anoxic brain injury no purposeful movements cannot elicit a pain response although she is still able to trigger the vent Pulm: Acute hypoxic respiratory on vent remains hypoxic despite under percent FiO2 she does have wheezing bilaterally having this is a combination of asthma and hydrostatic pulmonary edema from volume overload complicated by acidemia have adjusted percent to increase her respiratory rate to help with metabolic acidosis however this has had marginal if any effect I suspect that PaO2 greater than 60 but very low saturation reflection of acidemia and circulatory shock. Cards: Circulatory shock with multiorgan system failure coupled with profound acidemia secondary to lactic acidosis. I suspect this is secondary to metformin toxicity. Patient has been persistently hypotensive with systolic blood pressure less than 50 over nearly 12 hours and acidemia has not been able to be corrected despite constant infusion of sodium bicarbonate and GARMENT EXAMINER. She also has underlying infection complicating picture which also is contributing to shock but I do not believe this is the grain combine driver of her shock and acidemia FEN-GI: Nothing by mouth GI prophylaxis has been given Renal: Acute kidney injury was prepped found acidemia on CRRT nephrology following continue infusion of sodium bicarbonate at this point pH has not been greater than 6.9 despite maximal support ID: Suspected sepsis with shock likely secondary to pneumonia versus UTI or possible intra-abdominal source she is on broad-spectrum antimicrobials white count continues to be elevated Heme/Onc: She is evidence of severe coagulopathy which is likely secondary to DIC although no overt evidence of hemorrhage. Mechanical DVT prophylaxis provided Endo: Severe hyperglycemia requiring insulin infusion and patient with known diabetes on bicarbonate drip Integ/MSK: Skin Care per routine ICU Nursing Protocol to prevent ulcers. Lines: All lines examined without evidence of infection : Dispo: ICU for critical illness CODE: I had multiple conversations with the patient's next of kin her Dionicio Julien, along with her mother and father Sherry and CHELA respectively. I informed them of extremely grave prognosis and that this could not be survivable given the length of acidemia and hypotension. All questions were answered and the decision was made collectively to transition to comfort measures and when they are ready to proceed compassionate extubation will be provided and comfort measures instituted. The patient is unable to participate in giving a history and/or making treatment decisions. The discussion was necessary for determining treatment decision. This discussion took place in the ICU. The total meeting time in aggregate was 30 minutes <Maged Lau - Last Filed: 02/08/18 16:51> Date of Encounter: 02/08/18 Time of Encounter: 07:00 Assessment and Plan (1) Multi-organ system dysfunction Current Visit: Yes Status: Acute Per desires of family, continue current supportive measures including mechanical mechanical ventilation, fluid infusion, hemodialysis, and vasopressors prognosis is acknowledged as poor and present family is aware of this; patient is DNR CC A -- Metabolic Acidosis with High Anion Gap; suspected recent renal injury precipitating Rx toxicity (suspicious for Metformin-induced lactic acidosis) -- Severe DAK[place] (normal baseline renal function) -- ABGs consistently demonstrate metabolic acidosis -- See labs for other abnormalities -- CTA was not overly elucidated demonstrating possible pneumonic process, but not appreciable PE -- Abx onboard and will be continued for time being -- No other scans obtained due to critical nature of patient (2) Septic shock Current Visit: Yes Status: Suspected Suspected pneumonia, despite relative lack of recent symptomatic history (3) Pneumonia Current Visit: Yes Status: Suspected Suspected based on respiratory failure and CT exam Qualifiers: Pneumonia type: due to unspecified organism Laterality: bilateral Lung location: lower lobe of lung Qualified Code(s): J18.1 - Lobar pneumonia, unspecified organism (4) Acute respiratory failure Current Visit: Yes Status: Acute On Mechanical Vent saturating in 70s on 100% FiO2 Qualifiers: Respiratory failure complication: hypoxia Qualified Code(s): J96.01 - Acute respiratory failure with hypoxia (5) Metabolic acidosis Current Visit: Yes Status: Acute As above, suspected lactic acidosis (6) Acute renal failure Current Visit: Yes Status: Acute Marked DAKOTA as above -- On HD with nephro following -- Did have elevated potassium which has marginally improved Qualifiers: Acute renal failure type: unspecified Qualified Code(s): N17.9 - Acute kidney failure, unspecified (7) Hyperkalemia Current Visit: Yes Status: Acute (8) Diabetes mellitus Current Visit: Yes Status: Chronic Started on insulin drip due to FSBG and serum glucose levels in 400+ range Qualifiers: Diabetes mellitus type: type 2 Diabetes mellitus alf insulin use: with terminal system operator use Diabetes mellitus complication status: with unspecified complications Qualified Code(s): E11.8 - Type 2 diabetes mellitus with unspecified complications; Z79.4 - retirement (current) use of insulin; Z79.4 - terminal operator (current) use of insulin; Z79.4 - terminal operator (current) use of insulin; Z79.4 - retirement (current) use of insulin History of Present Illness Consult date: 02/08/18 Requesting physician: Abelardo Carlisle Reason for consult: other (Shock/Hypotension) History of present illness: HPI: per patient's , patient has been feeling somnolent entire over the last couple of days without any distinct symptoms otherwise. Yesterday, patient woke up feeling short of breath and was breathing fast. Patient notes the patient was not appearing short of breath while sleeping throughout the day. Patient woke up around noon complaining of nausea, but did not vomit at that time. It was early afternoon patient opted to go to [facility] emergency department. Patient's denies any acute symptoms including headache, visual disturbances, fevers, chills, any known weight loss, chest pain, vomiting, diarrhea, dysuria, pedal edema. Patient's also denies any recent worsening of patients depression, suicidal ideation, illicit substance abuse, excessive dosing of current medications, or other exposures to toxicities. Nobody at home is having similar symptoms to the patient. Patient was life flighted from [facility] in [facility] due to acute renal failure (baseline normal renal function), hypotension refractory to use of pressers and fluid bolus sees, acidosis refractory to buy carbon fusion. Patient intubated on arrival and presently on multiple vasopressors including epinephrine, norepinephrine, vasopressin. Patient has also received 4 L of IV fluids throughout ICU course at [facility]. Presently hypotensive with systolic's in the 40s over diastolic's in the 30s. Patient also hypoxic in the 70s on 100% Fi02 via mechanical ventilation. Dr. Carlisle discussed with patient spirally poor prognosis and it was agreed at that time the patient be considered DNR-CC- A. All Systems: The remainder of the systems were reviewed and are negative Physical Examination Vital Signs: Vital Signs, Last 4 Hours Temp Pulse Resp BP Pulse Ox 02/08/18 15:29 70 02/08/18 15:20 23 34/26 70 02/08/18 15:00 97.5 F L 73 24 [id number] 65 02/08/18 14:30 24 [id number] 74 02/08/18 14:00 77 24 74 02/08/18 13:10 73 02/08/18 13:00 81 76 CONSTITUTIONAL: patient obtunded/unresponsive, sedated, and on mechanical ventilator HEAD: Normocephalic; atraumatic. EYES: PERRL, no scleral icterus Oropharynx: pink/moist RESP: NRD without use of accessory musculature, CTA b/l with no wheezes/rales/ rhonchi CARD: Regular rhythm, without murmurs, rubs, or gallop ABD: grossly normal, soft, no pain response of palpation SKIN: normal appearance, no pallor/diaphoresis,mottling,jaundice,cyanosis on initial exam EXT: Rad pulses 1+ and symmetrical; no lateralizing edema; no other lesions seen Ventilator Settings Ventilator Settings: Ventilator Settings, Last 8 Hours Ventilator Mode A/C Ventilator Mode A/C Ventilator Mode A/C Ventilator Mode A/C Ventilator Mode A/C Ventilator Mode A/C Ventilator Mode A/C Ventilator Tidal Volume 500 Setting Ventilator Tidal Volume 500 Setting Ventilator Tidal Volume 500 Setting Ventilator Tidal Volume 500 Setting Ventilator Tidal Volume 500 Setting Ventilator Tidal Volume 500 Setting Ventilator Tidal Volume 500 Setting Ventilator Respiratory Rate 16 Setting Ventilator Respiratory Rate 16 Setting Ventilator Respiratory Rate 16 Setting Ventilator Respiratory Rate 16 Setting Ventilator Respiratory Rate 16 Setting Ventilator Respiratory Rate 16 Setting Ventilator Respiratory Rate 16 Setting Actual Respiratory Rate 24 Actual Respiratory Rate 24 Actual Respiratory Rate 23 Actual Respiratory Rate 24 Actual Respiratory Rate 24 Actual Respiratory Rate 24 Positive End Expiratory 10 Pressure Positive End Expiratory 10 Pressure Positive End Expiratory 10 Pressure Positive End Expiratory 10 Pressure Positive End Expiratory 10 Pressure Positive End Expiratory 10 Pressure Positive End Expiratory 10 Pressure Peak Inspiratory Airway 31 Pressure Peak Inspiratory Airway 32 Pressure Peak Inspiratory Airway 29 Pressure Peak Inspiratory Airway 29 Pressure Peak Inspiratory Airway 29 Pressure Peak Inspiratory Airway 27 Pressure Results - Laboratory Findings CBC and BMP: 02/08/18 04:00 02/08/18 13:32 ABG ABG pH 6.83 pH Units (7.32-7.45) L* 02/08/18 12:19 ABG pCO2 47 mmHg (35-45) H 02/08/18 12:19 ABG pO2 61 mmHg (85-104) L 02/08/18 12:19 ABG O2 Saturation 66 % (95-98) L 02/08/18 12:19 PT/INR, D-dimer PT 79.2 Seconds (9.4-12.1) H* D 02/08/18 04:55 Abnormal lab findings: Abnormal lab results WBC 20.6 K/mcL (4.3-11.1) H 02/08/18 04:00 RBC 3.41 M/mcL (3.82-4.97) L 02/08/18 04:00 Hgb 9.6 g/dL (11.5-15.4) L 02/08/18 04:00 Hct 33.9 % (35.3-44.9) L 02/08/18 04:00 MCHC 28.3 g/dL (31.6-35.5) L 02/08/18 04:00 Neutrophils # 16.6 K/mcL (1.6-8.9) H 02/08/18 04:00 Monocytes # 1.6 K/mcL (0.0-1.3) H 02/08/18 04:00 Nucleated RBCs/100 WBC 0.4 /100 WBC (0) H 02/08/18 04:00 Large Platelets Present (Not Present) A 02/08/18 04:00 Polychromasia 1+ (Not Present) A 02/08/18 04:00 Hypochromasia Present (Not Present) A 02/08/18 04:00 Macrocytosis Present (Not Present) A 02/08/18 04:00 Acanthocytes (Spur) 1+ (Not Present) A 02/08/18 04:00 PT 79.2 Seconds (9.4-12.1) H* D 02/08/18 04:55 INR 7.1 H* D 02/08/18 04:55 APTT > 360.0 Seconds (26.0-36.0) H* D 02/08/18 04:55 Heparin Anti-Xa, Unfract 2.07 IU/mL (0.30-0.70) H* 02/08/18 04:55 ABG pH 6.83 pH Units (7.32-7.45) L* 02/08/18 12:19 ABG pCO2 47 mmHg (35-45) H 02/08/18 12:19 ABG pO2 61 mmHg (85-104) L 02/08/18 12:19 ABG HCO3 8 mEq/L (21-27) L 02/08/18 12:19 ABG Total CO2 9 mEq/L (20-26) L 02/08/18 12:19 ABG O2 Saturation 66 % (95-98) L 02/08/18 12:19 ABG Base Excess -26 mEq/L (-2 to 3) L 02/08/18 12:19 ABG Chloride 108 mEq/L (98-107) H 02/07/18 22:17 VBG pH 6.82 pH Units (7.32-7.42) L* 02/08/18 00:23 Potassium 6.4 mEq/L (3.5-5.3) H 02/07/18 22:17 Glucose 214 mg/dL (60-95) H 02/07/18 22:17 Lactate 13.4 mmol/L (0.7-2.1) H* 02/07/18 22:17 Sodium 130 mEq/L (136-145) L 02/08/18 13:32 Potassium 5.2 mEq/L (3.5-5.1) H D 02/08/18 13:32 Chloride 89 mEq/L (98-107) L 02/08/18 13:32 Carbon Dioxide 7 mEq/L (23-29) L* 02/08/18 13:32 BUN 41 mg/dL (6-20) H 02/08/18 13:32 Creatinine 5.51 mg/dL (0.60-1.20) H 02/08/18 13:32 Est GFR ( Amer) 10 (> 60) L 02/08/18 13:32 Est GFR (Non-Af Amer) 8 (> 60) L 02/08/18 13:32 Glucose 425 mg/dL (70-105) H 02/08/18 13:32 POC Glucose 228 (58-89) H 02/08/18 00:10 Lactic Acid > 10.0 mmol/L (0.5-2.2) H* 02/08/18 04:00 Calcium 5.1 mg/dL (8.6-10.3) L* 02/08/18 13:32 Venous Ioniz Calcium 0.62 mmol/L (1.15-1.35) L 02/08/18 14:44 Phosphorus 14.1 mg/dL (2.7-4.5) H 02/08/18 04:00 Direct Bilirubin 0.3 mg/dL (0.0-0.2) H 02/08/18 04:00 AST 137 Units/L (13-39) H 02/08/18 04:00 Creatine Kinase 6669 Units/L (30-223) H 02/08/18 08:25 Serum Total Protein 4.9 g/dL (6.4-8.9) L 02/08/18 04:00 Albumin 2.9 g/dL (3.5-5.7) L 02/08/18 04:00 Globulin 2.1 g/dL (2.4-3.5) L 02/08/18 04:00 Arterial Blood Ionized Calcium 0.96 mmol/L (1.15-1.35) L 02/07/18 22:17 Urine Clarity Turbid (Clear) A 02/07/18 23:25 Ur Specific [place] > 1.030 (1.010-1.025) H 02/07/18 23:25 Urine Protein >=300 mg/dL (Neg-Trace) H 02/07/18 23:25 Urine Glucose (UA) 100 mg/dL (Normal) H 02/07/18 23:25 Urine Ketones Trace mg/dL (Negative) H 02/07/18 23:25 Urine Blood Large (Negative) H 02/07/18 23:25 Urine Bilirubin Small (Negative) H 02/07/18 23:25 Ur Leukocyte Esterase Small (Negative) H 02/07/18 23:25 Urine Microscopic RBC 5-15 per hpf (0-3) H 02/07/18 23:25 Urine Microscopic WBC 15-30 per hpf (0-3) H 02/07/18 23:25 Ur Squamous Epith Cells Many per lpf (None-Few) H 02/07/18 23:25 Urine Bacteria Many per hpf (None-Few) H 02/07/18 23:25 Urine Mucus Many (Few) H 02/07/18 23:25 Urine Yeast Moderate per hpf (None Seen) H 02/07/18 23:25 - Clinical Findings Intake & Output: Intake & Output 02/08/18 02/08/18 02/08/18 07:59 15:59 23:59 Intake Total 3596 / 3596 2605.8 / 2605.8 Output Total 35 / 35 209 / 209 Balance 3561 / 3561 2396.8 / 2396.8
--- NOTE | 2018-02-08 17:04 | Death Note ---
Discharge Sum: Summary - Date and Time Date of admission: 02/07/18 22:03 Date of : 02/08/18 Time of : 16:50 - Summary Details: Ms. Julien is a 47-year-old female who presented to [facility] via [facility] from [place] with diagnosis of severe metabolic acidosis combined with acute renal failure, acute respiratory failure, multiorgan system dysfunction with septic shock. Upon arrival to the intensive care unit she was started on vasopressor support, ventilatory support, bicarbonate drip. She did have a temporary dialysis catheter placed by interventional radiology and immediate dialysis was attempted. Despite resuscitation attempts, patient's condition did not improve. Her family, who have been present at bedside, elected to change her CODE STATUS to DO NOT RESUSCITATE- comfort care. The decision to withdraw support was made this afternoon. Patient was kept comfortable with fentanyl, Ativan. Physician was called into room at 1650 this evening due to pulselessness. was confirmed by no pulse, no respirations, no cardiac sounds on auscultation, pupils were fixed and dilated. Family was at bedside during pronouncement. - Additional Data Confirmation of as documented by pronouncing clinician: no pulse, no respirations, no heart sounds, pupils fixed and dilated Family: at bedside Attending physician: Josefina Yañez MD Was code activated?: No Autopsy requested?: No type copy examiner notified?: No Organ bank notified?: No Advance directives: No Hospice patient?: No Discharge Sum: Diag - PCOD Probable Cause of : Metabolic acidosis Discharge Sum: Prov - Provider Primary care physician: Luz Maria King CNP Admitting clinician: Abelardo Carlisle Consults: 02/07/18 23:31 Consult to Critical Care [CONS] Routine Consulting Provider: [facility] Reason for Consult: Sesptic shock, MOF Call Completed: Yes Consult to Dialysis [CONS] Stat Consult to Interventional Radiology [CONS] Stat Consulting Provider: Radiology Interventional [facility] Reason for Consult: Need HD line for emergent HD Call Completed: Yes Consult to Nephrology [CONS] Stat Consulting Provider: [facility] Reason for Consult: Acute renal failure Call Completed: Yes 02/08/18 01:00 Consult to Dialysis [CONS] ONCE Pronouncing clinician: Mic Lemus
--- NOTE | 2018-02-08 17:04 | Death Note ---
Pronouncement Note - Date and Time of Date of : 02/08/18 Time of : 16:50 - PCOD Preliminary cause of : Cardiac arrest - Additional Data Confirmation of : no pulse, no respirations, no heart sounds, pupils fixed and dilated Family: at bedside Attending physician: Josefina Yañez MD Was code activated?: No Autopsy requested?: No plan examiner notified?: No Organ bank notified?: No Advance directives: No
[2018-02-08] MEDS ORDERED: Aminoglycoside Consult 1 EACH MC ONE (18:44)
[2018-02-08] MEDS ORDERED: Chlorhexidine Rinse 15 ML MOUTHWASH MM SCH (21:00)
== END 2018-02-08 18:45 | disposition expired | DRG 720 ==
LOC: ICNU 22:03
PROVIDERS: ADMIT Internal Medicine; ATTEND Internal Medicine